=== PATIENT | female | born 1990 | race Caucasian/White ===

== ENCOUNTER → 2022-10-16 | Outpatient (CLI) | payer OTHER ==
[~2022-10-16] MED LIST: Neurontin 300300 MG PO; ONDA4ODT MM; Roxicodone5 MG PO
[2022-10-16 14:31] LABS: BASOPHILS ABSOLUTE AUTO 0.09 K/mm3 (0.00-0.23); BASOPHILS PERCENT AUTO 1 % (0-2); EOSINOPHILS ABSOLUTE AUTO 0.39 K/mm3 (0.00-0.68); EOSINOPHILS PERCENT AUTO 3 % (0-6); Hematocrit 38.4 % (33.0-51.0); Hemoglobin 12.7 g/dL (11.5-16.0); IMMATURE GRAN ABSOLUTE AUTO 0.16 K/mm3 (0.00-0.10); IMMATURE GRAN PERCENT AUTO 1 % (0-1); LYMPHOCYTES ABSOLUTE AUTO 1.82 K/mm3 (0.84-5.20); LYMPHOCYTES PERCENT AUTO 15 % (21-46); MONOCYTES ABSOLUTE AUTO 0.66 K/mm3 (0.16-1.47); MONOCYTES PERCENT AUTO 6 % (4-13); Mean Corpuscular HGB 35.3 pg (26.0-34.0); Mean Corpuscular HGB Conc 33.1 g/dL (31.5-36.5); Mean Corpuscular Volume 107 fL (80-100); Mean Platelet Volume 9.7 fL (9.1-12.4); NEUTROPHILS ABSOLUTE AUTO 8.96 K/mm3 (1.96-9.15); NEUTROPHILS PERCENT AUTO 74 % (41-73); Platelet Count 777 K/mm3 (150-400); RDW Coefficient Variation 13.6 % (11.7-14.2); RDW Standard Deviation 53.7 fL (35.1-46.3); White Blood Cell Count 12.08 K/mm3 (4.00-11.30)
[2022-10-16 14:40] LABS: Albumin, Blood 2.7 g/dL (3.4-5.0); Albumin/Globulin Ratio 0.5 (0.8-1.8); Bilirubin, Total 0.4 mg/dL (0.1-1.0); Bun/Creatinine Ratio 1.3 (12.0-20.0); Calcium, Blood 9.1 mg/dL (8.5-10.1); Creatinine, Blood 0.76 mg/dL (0.40-1.00); Potassium, Blood 4.1 mmol/L (3.5-5.5); Total Protein, Blood 7.7 g/dL (6.4-8.2)
== END | disposition home or self-care (01) ==
LOC: LAB SHORT 14:25
PROVIDERS: Physician Assistant
DX: R10.9 Unspecified abdominal pain (principal)
CPT/HCPCS: 80053; 83690; 85025

== ENCOUNTER → 2023-01-07 | Outpatient (CLI) | payer OTHER ==
[~2023-01-07] MED LIST changes: +FAMO20 PO; +Hair, Skin & N1 EACH PO
[2023-01-07 14:17] LABS: BASOPHILS ABSOLUTE AUTO 0.06 K/mm3 (0.00-0.23); BASOPHILS PERCENT AUTO 1 % (0-2); EOSINOPHILS ABSOLUTE AUTO 0.26 K/mm3 (0.00-0.68); EOSINOPHILS PERCENT AUTO 3 % (0-6); Hematocrit 44.4 % (33.0-51.0); Hemoglobin 15.3 g/dL (11.5-16.0); IMMATURE GRAN ABSOLUTE AUTO 0.03 K/mm3 (0.00-0.10); IMMATURE GRAN PERCENT AUTO 0 % (0-1); LYMPHOCYTES ABSOLUTE AUTO 1.33 K/mm3 (0.84-5.20); LYMPHOCYTES PERCENT AUTO 13 % (21-46); MONOCYTES ABSOLUTE AUTO 0.59 K/mm3 (0.16-1.47); MONOCYTES PERCENT AUTO 6 % (4-13); Mean Corpuscular HGB 32.3 pg (26.0-34.0); Mean Corpuscular HGB Conc 34.5 g/dL (31.5-36.5); Mean Corpuscular Volume 94 fL (80-100); Mean Platelet Volume 10.1 fL (9.1-12.4); NEUTROPHILS ABSOLUTE AUTO 7.76 K/mm3 (1.96-9.15); NEUTROPHILS PERCENT AUTO 77 % (41-73); Platelet Count 302 K/mm3 (150-400); RDW Coefficient Variation 15.5 % (11.7-14.2); RDW Standard Deviation 53.3 fL (35.1-46.3); Red Blood Cell Count 4.73 M/mm3 (3.80-5.20); White Blood Cell Count 10.03 K/mm3 (4.00-11.30)
[2023-01-07 14:25] LABS: Albumin, Blood 3.8 g/dL (3.4-5.0); Albumin/Globulin Ratio 0.8 (0.8-1.8); Bilirubin, Total 1.1 mg/dL (0.1-1.0); Bun/Creatinine Ratio 4.1 (12.0-20.0); Calcium, Blood 9.5 mg/dL (8.5-10.1); Creatinine, Blood 0.74 mg/dL (0.40-1.00); Globulin, Blood 4.8 g/dL (2.2-4.0); Potassium, Blood 3.8 mmol/L (3.5-5.5); Total Protein, Blood 8.6 g/dL (6.4-8.2)
== END | disposition home or self-care (01) ==
LOC: LAB SHORT 14:11 → LAB 14:11
PROVIDERS: Physician Assistant
DX: R10.9 Unspecified abdominal pain (principal)
CPT/HCPCS: 80053; 82150; 83690; 85025

== ENCOUNTER 2023-06-29 14:16 | Inpatient (IN) | payer OTHER ==
[~2023-06-29] VITALS: Ht 165.1 cm; Wt 76.0 kg
[~2023-06-29 14:16] MED LIST changes: +ACET500 PO; +B-1100 M1 PO; +FOLI1; +Nicoderm Cq1 EACH TOP; +Percocet 5-3251 EACH PO
[2023-06-29 15:06] LABS: BASOPHILS ABSOLUTE AUTO 0.07 K/mm3 (0.00-0.23); BASOPHILS PERCENT AUTO 1 % (0-2); EOSINOPHILS ABSOLUTE AUTO 0.03 K/mm3 (0.00-0.68); EOSINOPHILS PERCENT AUTO 0 % (0-6); Hematocrit 31.1 % (33.0-51.0); IMMATURE GRAN ABSOLUTE AUTO 0.09 K/mm3 (0.00-0.10); IMMATURE GRAN PERCENT AUTO 1 % (0-1); LYMPHOCYTES ABSOLUTE AUTO 1.36 K/mm3 (0.84-5.20); LYMPHOCYTES PERCENT AUTO 10 % (21-46); MONOCYTES ABSOLUTE AUTO 1.06 K/mm3 (0.16-1.47); MONOCYTES PERCENT AUTO 7 % (4-13); Mean Corpuscular HGB 35.5 pg (26.0-34.0); Mean Corpuscular HGB Conc 35.4 g/dL (31.5-36.5); Mean Corpuscular Volume 100 fL (80-100); Mean Platelet Volume 10.4 fL (9.1-12.4); NEUTROPHILS ABSOLUTE AUTO 11.64 K/mm3 (1.96-9.15); NEUTROPHILS PERCENT AUTO 82 % (41-73); Platelet Count 337 K/mm3 (150-400); RDW Coefficient Variation 18.1 % (11.7-14.2); RDW Standard Deviation 66.1 fL (35.1-46.3); White Blood Cell Count 14.25 K/mm3 (4.00-11.30)
[2023-06-29 15:56] LABS: Source, Urine Clean Catch
[2023-06-29] MEDS ORDERED: FLUO10 (15:59)
[2023-06-29 16:03] LABS: Appearance, Urine Cloudy (Clear); Blood, Urine 1+ (Neg); Color, Urine Amber (P-Yellow); Glucose Qualitative, Urine Neg (Neg); Ketones, Urine 1+ (Neg); Leukocyte Esterase, Urine 2+ (Neg); Nitrite, Urine Pos (Neg); Protein, Urine 2+ (Neg); Urobilinogen, Urine 3+ (Normal)
[2023-06-29 16:07] LABS: Alanine Aminotransfer (ALT/SGP 68 U/L (12-78); Albumin, Blood 2.3 g/dL (3.4-5.0); Albumin/Globulin Ratio 0.5 (0.8-1.8); Alk Phos 264 U/L (50-136); Anion Gap 9 mmol/L (6-16); Aspartate Aminotrans (AST/SGOT 241 U/L (12-37); Bilirubin, Total 4.5 mg/dL (0.1-1.0); Blood Urea Nitrogen <1 mg/dL (8-24); Bun/Creatinine Ratio Unable to Calculate (12.0-20.0); CO2, Blood 29 mmol/L (21-32); Chloride, Blood 98 mmol/L (98-108); Creatinine, Blood 0.42 mg/dL (0.40-1.00); Glomerular Filtration Rate 133 (60-); Glucose, Blood 89 mg/dL (70-99); Potassium, Blood 2.9 mmol/L (3.5-5.5); Sodium, Blood 136 mmol/L (136-145); Total Protein, Blood 7.3 g/dL (6.4-8.2)
[2023-06-29 16:12] LABS: Bilirubin, Urine 3+ (Neg)
[2023-06-29 16:14] LABS: Amorphous Light (0-Heavy); Mucus Mod (0-Heavy); Squamous Epithelial Cells Many /hpf (Few); Yeast/Fungi Urine Mod /hpf
[2023-06-29 16:15] LABS: Bacteria Many /hpf; Red Blood Cells, Urine 0-2 /hpf (0-2)
[2023-06-29 18:07] LABS: Influenza A, PCR NEGATIVE (NEGATIVE); Influenza B, PCR NEGATIVE (NEGATIVE); Resp Syncytial Virus, PCR NEGATIVE (NEGATIVE); SARS-Cov-2 (COVID-19) PCR, MMC NEGATIVE (NEGATIVE)
[2023-06-29 19:30] LABS: International Normalized Ratio 1.5; Prothrombin Time Results 15.4 Sec (9.7-11.5)
[2023-06-29 22:02] VITALS: BP 92/63
[2023-06-30 00:14] VITALS: BP 100/62
[2023-06-30 02:42] VITALS: BP 97/70
[2023-06-30 03:40] LABS: BASOPHILS ABSOLUTE AUTO 0.05 K/mm3 (0.00-0.23); BASOPHILS PERCENT AUTO 1 % (0-2); EOSINOPHILS ABSOLUTE AUTO 0.09 K/mm3 (0.00-0.68); EOSINOPHILS PERCENT AUTO 1 % (0-6); Hematocrit 27.2 % (33.0-51.0); Hemoglobin 9.3 g/dL (11.5-16.0); IMMATURE GRAN ABSOLUTE AUTO 0.05 K/mm3 (0.00-0.10); IMMATURE GRAN PERCENT AUTO 1 % (0-1); LYMPHOCYTES ABSOLUTE AUTO 1.21 K/mm3 (0.84-5.20); LYMPHOCYTES PERCENT AUTO 12 % (21-46); MONOCYTES ABSOLUTE AUTO 0.77 K/mm3 (0.16-1.47); MONOCYTES PERCENT AUTO 7 % (4-13); Mean Corpuscular HGB 35.2 pg (26.0-34.0); Mean Corpuscular HGB Conc 34.2 g/dL (31.5-36.5); Mean Corpuscular Volume 103 fL (80-100); Mean Platelet Volume 10.3 fL (9.1-12.4); NEUTROPHILS ABSOLUTE AUTO 8.26 K/mm3 (1.96-9.15); NEUTROPHILS PERCENT AUTO 79 % (41-73); Platelet Count 267 K/mm3 (150-400); RDW Coefficient Variation 18.9 % (11.7-14.2); RDW Standard Deviation 71.7 fL (35.1-46.3); Red Blood Cell Count 2.64 M/mm3 (3.80-5.20); White Blood Cell Count 10.43 K/mm3 (4.00-11.30)
[2023-06-30 04:29] LABS: Magnesium, Blood 1.5 mg/dL (1.6-2.4)
[2023-06-30 04:39] LABS: Alanine Aminotransfer (ALT/SGP 48 U/L (12-78); Albumin, Blood 1.6 g/dL (3.4-5.0); Albumin/Globulin Ratio 0.4 (0.8-1.8); Alk Phos 188 U/L (50-136); Anion Gap 6 mmol/L (6-16); Aspartate Aminotrans (AST/SGOT 166 U/L (12-37); Bilirubin, Total 4.7 mg/dL (0.1-1.0); Blood Urea Nitrogen <1 mg/dL (8-24); Bun/Creatinine Ratio Unable to Calculate (12.0-20.0); CO2, Blood 24 mmol/L (21-32); Calcium, Blood 6.4 mg/dL (8.5-10.1); Chloride, Blood 112 mmol/L (98-108); Creatinine, Blood 0.39 mg/dL (0.40-1.00); Globulin, Blood 4.1 g/dL (2.2-4.0); Glomerular Filtration Rate 136 (60-); Glucose, Blood 84 mg/dL (70-99); Potassium, Blood 3.6 mmol/L (3.5-5.5); Sodium, Blood 142 mmol/L (136-145); Total Protein, Blood 5.7 g/dL (6.4-8.2)
--- NOTE | 2023-06-30 05:33 | NUR ---
SHIFT SUMMARY NO ACUTE CHANGES THIS SHIFT POST ADMISSION. PT C/O SEVERE ABD TO R SIDE ON ADMISSION, TORADOL UNSSUCESSFUL AT RELIEVING PAIN, WAS FENTANYL. DILAUDID ALONGSIDE SOME REST HAS BEEN SUCCESFUL AT RELIEVING PAIN ENOUGH TO SLEEP ALONG WITH 2 DOSES OF LIBRIUM FOR ETOH. PT'S VSS, MILD HYPOTENSION NOTED. FLUIDS INFUSING T/O SHIFT, DARK URINE OUTPUT. PT COUNSELLED ON NICOTINE AND ALCOHOL CESSATION, PT STATES SHE WANTS TO QUIT AND HAS IN THE PAST. BED ALARM ON BUT PT NOT IMPULSIVE.
[2023-06-30 08:41] VITALS: BP 101/70
[2023-06-30 11:12] VITALS: BP 99/69
[2023-06-30 16:38] VITALS: BP 100/71
--- NOTE | 2023-06-30 17:38 | NUR ---
END OF SHIFT PT A&O X4. VSS. SPO2 > 92% ON RA. MONITOR SHOWING SR-ST, HR 90s-110s. PT REPORTING R-SIDED "STABBING" ABD PAIN. PT MEDICATED PER EMAR/PT REQUEST W/ PT REPORT OF IMPROVEMENT. ABD SOFT. CIWA 3-8 THIS SHIFT D/T PT TREMORS & NAUSEA. PT REPORTS IMPROVENT IN NAUSEA W/ MEDICATION & TREMORS NOTEABLLY LESS W/ PRN LIBRIUM PER EMAR.
[2023-06-30 20:07] VITALS: BP 98/72
[2023-07-01 00:05] VITALS: BP 94/67
[2023-07-01 04:43] LABS: Alanine Aminotransfer (ALT/SGP 47 U/L (12-78); Albumin, Blood 1.8 g/dL (3.4-5.0); Albumin/Globulin Ratio 0.4 (0.8-1.8); Alk Phos 189 U/L (50-136); Anion Gap 5 mmol/L (6-16); Aspartate Aminotrans (AST/SGOT 166 U/L (12-37); Bilirubin, Total 3.5 mg/dL (0.1-1.0); CO2, Blood 24 mmol/L (21-32); Chloride, Blood 114 mmol/L (98-108); Creatinine, Blood 0.47 mg/dL (0.40-1.00); Globulin, Blood 4.1 g/dL (2.2-4.0); Glomerular Filtration Rate 130 (60-); Glucose, Blood 84 mg/dL (70-99); Potassium, Blood 3.6 mmol/L (3.5-5.5); Sodium, Blood 143 mmol/L (136-145); Total Protein, Blood 5.9 g/dL (6.4-8.2)
[2023-07-01 04:45] LABS: Blood Urea Nitrogen <1 mg/dL (8-24); Bun/Creatinine Ratio Unable to Calculate (12.0-20.0)
--- NOTE | 2023-07-01 06:38 | NUR ---
NOC SHIFT SUMMARY PT ORIENTED X4, WITHDRAWN BUT COOPERATIVE. TEARFUL AT TIMES. EXPRESSES DESIRE TO QUIT ETOH AND ATTEND AA MEETINGS WHEN DISCHARGED. SHE SPOKE ABOUT HER SON BEING HER MOTIVATION. CIWA 3-11, TOLERATING LIBRIUM PO WELL. NO ATIVAN UTLIZED. STILL W/COMPLAINTS OF RUQ ABD PAIN, IV DILAUDID GIVEN. NAUSEA X2, PO NAUSEA MEDS GIVEN. ST ON TELEMETRY, VSS PER PT TREND. WILL PASS ON TO DAY RN
[2023-07-01 06:52] VITALS: BP 100/76
[2023-07-01 08:28] VITALS: BP 109/67
[2023-07-01 11:29] VITALS: BP 99/68
[2023-07-01 14:50] VITALS: BP 96/68
--- NOTE | 2023-07-01 15:57 | NUR ---
MEDICAL STATUS / TRANSFER NOTE PT A&O X4. VSS. SPO2 > 92% ON RA. TELEMETRY SHOWING NSR PRIOR TO TELEMETRY DC. PT MEDICAL STATUS. CIWA: 3-8 THIS SHIFT D/T TREMORS & NAUSEA, MEDICATED W/ PRN LIBRIUM PER EMAR X1 THIS SHIFT W/ IMPROVEMENT. NS GTT INFUSING PER EMAR. PT REPORTING R-SIDED ABD PAIN, MEDICATED PER EMAR/PT REQUEST W/ PT REPORT OF IMPROVEMENT. PT DENYING BM THIS HOSPITAL STAY. MD JOVEL W/ ORDERS FOR BOWEL CARE MEDICATIONS, MEDS GIVEN TO PT PER EMAR. REPORT GIVEN TO ACCEPTING SURGICAL FLOOR RN ASSUMING CARE OF PT. PT TO BE TAKEN TO RM 207 W/ BELONGINGS.
--- NOTE | 2023-07-01 16:55 | NUR ---
SHIFT SUMMARY: ABD PAIN/ETOH PATIENT IS A&OX4. PATIENT REPORTS "DISCOMFORT" ON HER RLQ WHICH HAS BEEN MANAGED WITH IV DILAUDID. PATIENTS CIWA SCORE IS AN 8 AT THIS TIME. SHE WAS GIVEN IV ATIVAN WHICH HAS HELPED CALMED PATIENTS TREMORS AT THIS TIME. PATIENT IS TOLERATING SMALL AMOUNTS OF PO INTAKE. SHE IS A SBA TO THE BATHROOM. SHE HAS IV FLUIDS RUNNING PER EMAR. PATIENT IS CURRENTLY LAYING IN BED WITH CALL LIGHT IN REACH.
[2023-07-01 19:56] VITALS: BP 102/71
[2023-07-02 03:18] VITALS: BP 107/74
--- NOTE | 2023-07-02 04:02 | NUR ---
SHIFT SYMMARY VSS. PT SLEPT ON AND OFF T/O THE NIGHT, WAS ABLE TO AMBULATE TO THE BATHROOM INDEPENDENTLY. VOIDING, NO BM. PT REPORTS NO FLATTUS. TOLLERATED SMALL AMOUNTS OF PO INTAKE. ONE EPISODE OF NAUSEA NOTED, NO EMESIS. STRUGGLED WITH PAIN CONTROL T/O THE NIGHT, PT REPORTS 7-8/10 PAIN IN RUQ AND R FLANK. MEDICATED WITH PRN MEDICATION, SOME RELIEF NOTED. K PAD GIVEN. CIWA'S STAYED CONSISTANTLY 8 T/O THE NIGHT. PT REPORTED IMPROVEMENT IN SYMPTOMS WHEN MEDICATED PER EMAR FOR WITHDRAWLS. OVERALL, NO ACUTE EVENTS NOTED.
[2023-07-02 06:23] LABS: Alanine Aminotransfer (ALT/SGP 40 U/L (12-78); Albumin, Blood 1.7 g/dL (3.4-5.0); Albumin/Globulin Ratio 0.4 (0.8-1.8); Alk Phos 174 U/L (50-136); Anion Gap 4 mmol/L (6-16); Aspartate Aminotrans (AST/SGOT 139 U/L (12-37); Bilirubin, Total 3.6 mg/dL (0.1-1.0); Blood Urea Nitrogen <1 mg/dL (8-24); Bun/Creatinine Ratio Unable to Calculate (12.0-20.0); CO2, Blood 24 mmol/L (21-32); Calcium, Blood 7.3 mg/dL (8.5-10.1); Chloride, Blood 116 mmol/L (98-108); Creatinine, Blood 0.43 mg/dL (0.40-1.00); Globulin, Blood 4.1 g/dL (2.2-4.0); Glomerular Filtration Rate 132 (60-); Glucose, Blood 77 mg/dL (70-99); Potassium, Blood 3.8 mmol/L (3.5-5.5); Sodium, Blood 144 mmol/L (136-145); Total Protein, Blood 5.8 g/dL (6.4-8.2)
[2023-07-02 07:14] VITALS: BP 100/72; BP 98/59
--- NOTE | 2023-07-02 09:18 | NUR ---
PT WITH INCREASED WITHDRAWL SX THROUGH NOC. CIWA SCORE OF 12 DURING AM ASSESSMENT, SEVERE TREMORS, HEADACH, NAUSEA WELL INCREASED ABD PAIN W/MOD ABD DISTENTION. PT MEDICATED WITH 1MG DILAUDID AND 25MG LIBRIUM DUE TO SEDATION AND INCREASED O2 REQUIREMENTS. CONTINUOUS BIOX PLACED ON PT, O2 SAT 85%. PT PLACED ON 2L 02 NC AND O2 SAT INCREASED TO 91%. DR JOVEL IN TO SEE PT. PLAN FOR SCHEDULED LIBRIUM AND TO START PHENOBARBITAL. MD REQUEST TX TO PCU FOR HIGHGER LEVEL OF CARE.
[2023-07-02 10:08] LABS: HEPATITIS C AB CIA INTERP Negative (Negative); HEPATITIS C ANTIBODY CIA INDEX 0.11 IV
[2023-07-02 11:15] VITALS: BP 100/78
--- NOTE | 2023-07-02 11:28 | NUR ---
PT TX TO PCU AT APROX 1115. REPORT GIVEN TO KODI. PT AWAKENS TO VERBAL STIMULI EASILY/FALLS BACK ASLEEP EASILY. CIWA SCORE 0 FOLLOWING ADMINISTRATION OF IV PHENOBARBITOL. ATTEMPTED TO CALL FAMILY W/NO ANSWER TO UPDATE ON CHANGE IN LEVEL OF CARE.
[2023-07-02 15:26] LABS: International Normalized Ratio 1.74; Prothrombin Time Results 17.7 Sec (9.7-11.5)
[2023-07-02 16:22] VITALS: BP 104/68
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
[2023-07-02 19:51] VITALS: BP 98/76
[2023-07-02 23:14] VITALS: BP 97/69; BP 9897/69
[2023-07-03] VITALS (8 sets, daily range): BP systolic 94–102; BP diastolic 62–79
[2023-07-03 04:39] LABS: Hematocrit 29.8 % (33.0-51.0); Hemoglobin 10.1 g/dL (11.5-16.0); Mean Corpuscular HGB 35.9 pg (26.0-34.0); Mean Corpuscular HGB Conc 33.9 g/dL (31.5-36.5); Mean Corpuscular Volume 106 fL (80-100); Mean Platelet Volume 10.6 fL (9.1-12.4); Platelet Count 281 K/mm3 (150-400); RDW Coefficient Variation 18.5 % (11.7-14.2); RDW Standard Deviation 71.8 fL (35.1-46.3); Red Blood Cell Count 2.81 M/mm3 (3.80-5.20); White Blood Cell Count 10.46 K/mm3 (4.00-11.30)
--- NOTE | 2023-07-03 05:08 | NUR ---
SHIFT SUMMARY THIS RN ASSUMED CARE OF PATIENT AT 1900. PT IS LETHARGIC BUT AROUSABLE TO VERBAL STIMULI, BUT QUICKLY FALLS BACK TO SLEEP, ANSWERING QUESTIONS APPROPRIATELY. MILD TREMORS NOTED WITH MOVEMENT. CIWA 0-1. BP STABLE. SR WTIH HR 70-80'S. ON RA WITH SPO2 >92%. TACHYPNEA NOTED AT TIMES. REPORTS RT UPPER ABDOMINAL PAIN BUT APPEARS TO HAVE SLEPT T/O THE NIGHT. 1P ASSIST TO BSC. NS INFUSING AT 125MLS/HR. NO ACUTE CHANGES NOTED. BED IN LOWEST POSITION, BED ALARM ON, CALL LIGHT WITHIN REACH. THIS [facility].
[2023-07-03 05:24] LABS: Albumin, Blood 1.5 g/dL (3.4-5.0); Albumin/Globulin Ratio 0.4 (0.8-1.8); Bilirubin, Total 3.9 mg/dL (0.1-1.0); Bun/Creatinine Ratio 2.4 (12.0-20.0); Calcium, Blood 7.1 mg/dL (8.5-10.1); Creatinine, Blood 0.42 mg/dL (0.40-1.00); Potassium, Blood 4.3 mmol/L (3.5-5.5); Total Protein, Blood 5.5 g/dL (6.4-8.2)
--- NOTE | 2023-07-03 06:22 | NUR ---
PATIENT UPDATE THIS RN NOTED DESAT ALARM INDICATING SPO2 70-80'S WITH GOOD PLETH. PT PREVIOUSLY ON RA. THIS RN TO ROOM TO ASSESS PATIENT. PATIENT MORE LETHARGIC AND NOT REPONSIVE TO VERBAL STIMULI. STERNAL RUB GIVEN WTIH IMMEDIATE REPONSE. PT PLACED ON 2L VIA NC. SPO2 >92% AT THIS TIME. PT HAVING A DIFFICULT TIME STAYING AWAKE, BUT IS REPORTING THAT SHE IS FEELING DYSPNEIC AND FEELING "PRESSURE" IN HER CHEST. EKG DONE, EKG READING NSR; NO NOTED ACUTE CHANGES FROM PRIOR EKG. PT REPORTING "PRESSURE" IS FELT MORE WHEN SHE TAKES DEEP BREATHING. LS CLEAR. PT NOTED TO HAVE INCREASED EDEMA TO EYELIDS, STATING THAT IT'S HARD TO OPEN THEM. THIS RN PLACED NS ON STANDBY. MD ANN NOTIFIED OF CHANGE IN CONDITION AND THIS RN'S CONCERNS/INTERVENTIONS. MD ANN VERBALIZED THAT HE WILL LOOK OVER PATIENTS CHART AT THIS TIME. PT LEFT WITH HOB ELEVATED AND BP'S CYCLING Q15MIN. CONTINUES TO BE ON 2L VIA NC. NO FURTHER ORDERS AT THIS TIME.
--- NOTE | 2023-07-03 10:08 | NUR ---
care assumption this rn assumed care at 0700. vital signs stable. patient is lethargic and responds to verbal stimuli. patient is able to hold a conversations for a couple minutes and then falls back asleep. patient scalera is yellow and pupils are sluggish. patient reports abd pain and heat applied. patient reports no chest pain/pressure. patient does not report shortness of breath but reports occasional pain with deep breaths. respirations 20-30 on 2l nc and spo2 >90%. patient has dim lung sounds bilaterally throighout. tele sr 70s. patient ciwa this am is 1. see shift assessment for further detials. md kelly in to see patient and discussed plan of care. plan of care is up to date.
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
--- NOTE | 2023-07-03 17:56 | NUR ---
shift summary no acute changes throughout the shift. ciwa 0-5. see charting. patient vitals stable. patient had a shower and linen change. patient has been ambulating independently and using the walker. see previous notes. plan of care up to date
--- NOTE | 2023-07-03 21:39 | NUR ---
ASSUMED PT CARE FORM RN ON . SLEEPING, WAKES TO NOISE. A&OX4 BUT RESPONSES SLOW, APPEAR DROWSY. CIWAH OF 1 AT THIS TIME. HR SR IN 90'S. BP STABLE, SEE RECORDED VITAL SIGNS. O2 SATS > 90% ON RA. AFEBRILE. MEDICATED FOR PAIN IN RUQ OF ABDOMEN, SEE EMAR. DENIES FURTHER NEEDS AT THIS TIME. CALL LIGHT IN REACH. BED IN LOW POSITION.
[2023-07-04 05:07] LABS: Albumin, Blood 1.6 g/dL (3.4-5.0); Albumin/Globulin Ratio 0.4 (0.8-1.8); Bilirubin, Total 2.6 mg/dL (0.1-1.0); Bun/Creatinine Ratio 4.3 (12.0-20.0); Calcium, Blood 7.7 mg/dL (8.5-10.1); Creatinine, Blood 0.46 mg/dL (0.40-1.00); Potassium, Blood 3.6 mmol/L (3.5-5.5); Total Protein, Blood 5.6 g/dL (6.4-8.2)
[2023-07-04 05:26] VITALS: BP 88/62
--- NOTE | 2023-07-04 05:57 | NUR ---
SHIFT SUMMARY: MEDICATED FOR PAIN IN ABDOMEN WITH BOTH PO AND IV PRN PAIN MEDS, SEE EMAR. BP THIS A.M. SOFT, MAP > 65, WILL MONITOR. OTHER VITAL SIGNS STABLE. CIWAH'S CONTINUE TO BE 1-3. MEDICATED FOR NAUSEA, SEE EMAR. CALL LIGHT IN REACH. BED IN LOW POSITION.
[2023-07-04 07:41] VITALS: BP 92/63
[2023-07-04] MEDS ORDERED: LACT10SY PO (13:54)
[2023-07-04] MEDS ORDERED: B-1100 M1 PO (13:55)
[2023-07-04 14:30] VITALS: BP 104/74
--- NOTE | 2023-07-04 14:55 | NUR ---
UPDATE PT SLEEPY BUT ABLE TO ANSWER QUESTIONS, MAKE NEEDS KNOWN. USES CALL LIGHT APPROPRIATELY. ABLE TO AMBULATED TO BATHROOM TO VOID. SP02>90% ON RA. PT MADE MEDICAL NO TELE STATUS THIS SHIFT. VSS. PT NAUSEATED THIS AM, PHENERGAN GIVEN PER EMAR. FAMILY CALLED MULTIPLE TIMES FOR UPDATE. PT DID NOT GIVE CONSENT TO UPDATE FAMILY, FAMILY DID NOT RECEIVE UPDATE. PT AMBULATED FROM ROOM THIS AFTERNOON AND STATED SHE WANTS TO GO HOME. CALL PLACED TO MD ODONNELL. MD ODONNELL WITH DISCHARGE ORDERS. IV REMOVED. PT PLACED CALL TO CORAL GALVEZ, WHO STATED SHE WILL PICK PT UP. PCT HELPED PT DRESS. DISCHARGE ORDERS AND MEDICATIONS REVIEWED WITH PT. [facility] PER PT'S REQUEST. PT IN ROOM RESTING, WAITING FOR RIDE.
== END 2023-07-04 15:30 | disposition home or self-care (01) | DRG 896 ==
LOC: ER 14:16 → PCU 14:17 → SURS 07-01 16:20 → PCU 07-02 11:13
PROVIDERS: Family Medicine; Internal Medicine; Student in an Organized Health Care Education/Training Program; ADMIT Internal Medicine
PROC: HZ2ZZZZ Detoxification Services for Substance Abuse Treatment (ICD-10-PCS; principal; 2023-07-04)
DX: F10.239 Alcohol dependence with withdrawal, unspecified (principal); R57.1 Hypovolemic shock; K86.1 Other chronic pancreatitis; R65.10 Systemic inflammatory response syndrome (SIRS) of non-infectious origin without acute organ dysfunction; F10.259 Alcohol dependence with alcohol-induced psychotic disorder, unspecified; K76.0 Fatty (change of) liver, not elsewhere classified; K70.10 Alcoholic hepatitis without ascites; E87.6 Hypokalemia; E88.09 Other disorders of plasma-protein metabolism, not elsewhere classified; D50.9 Iron deficiency anemia, unspecified; K76.82 Hepatic encephalopathy; B96.89 Other specified bacterial agents as the cause of diseases classified elsewhere; F43.10 Post-traumatic stress disorder, unspecified; F32.A Depression, unspecified; F41.9 Anxiety disorder, unspecified; F17.210 Nicotine dependence, cigarettes, uncomplicated; K74.60 Unspecified cirrhosis of liver; Z88.0 Allergy status to penicillin; Z79.899 Other long term (current) drug therapy; Z11.52 Encounter for screening for COVID-19
CPT/HCPCS: 0241U; 36415; 74177; 80053; 81001; 81025; 82140; 82248; 82947; 83605; 83690; 83735; 85025; 85027; 85610; 86803; 87040; 87086; 87106; 93005; 93010; 94760; 94762; 96361; 96365-59; 96366; 96368; 96375; 96376; 99285-25; A9270; G0378; J1170; J1885; J1956; J2060; J2405; J2560; J2765; J2930; J3010; J3411; J3475; J3480; J7030; J7050; Q9967

== ENCOUNTER 2023-07-05 15:27 | Emergency (ER) | payer OTHER ==
[~2023-07-05] VITALS: Ht 165.1 cm; Wt 65.8 kg
[~2023-07-05 15:27] MED LIST changes: +FLUO10; +LACT10SY PO
[2023-07-05 16:11] LABS: BASOPHILS ABSOLUTE AUTO 0.05 K/mm3 (0.00-0.23); BASOPHILS PERCENT AUTO 1 % (0-2); EOSINOPHILS ABSOLUTE AUTO 0.08 K/mm3 (0.00-0.68); EOSINOPHILS PERCENT AUTO 1 % (0-6); Ethanol (Alcohol), Blood, Med <3 mg/dL; Hematocrit 37.8 % (33.0-51.0); Hemoglobin 12.6 g/dL (11.5-16.0); IMMATURE GRAN ABSOLUTE AUTO 0.15 K/mm3 (0.00-0.10); IMMATURE GRAN PERCENT AUTO 1 % (0-1); LYMPHOCYTES ABSOLUTE AUTO 1.55 K/mm3 (0.84-5.20); LYMPHOCYTES PERCENT AUTO 15 % (21-46); MONOCYTES PERCENT AUTO 10 % (4-13); Magnesium, Blood 2.1 mg/dL (1.6-2.4); Mean Corpuscular HGB 35.6 pg (26.0-34.0); Mean Corpuscular HGB Conc 33.3 g/dL (31.5-36.5); Mean Corpuscular Volume 107 fL (80-100); Mean Platelet Volume 10.8 fL (9.1-12.4); NEUTROPHILS ABSOLUTE AUTO 7.66 K/mm3 (1.96-9.15); NEUTROPHILS PERCENT AUTO 72 % (41-73); Platelet Count 423 K/mm3 (150-400); RDW Coefficient Variation 19.4 % (11.7-14.2); RDW Standard Deviation 77.8 fL (35.1-46.3); Red Blood Cell Count 3.54 M/mm3 (3.80-5.20); White Blood Cell Count 10.59 K/mm3 (4.00-11.30)
[2023-07-05 16:17] LABS: Alanine Aminotransfer (ALT/SGP 48 U/L (12-78); Albumin, Blood 2.3 g/dL (3.4-5.0); Albumin/Globulin Ratio 0.4 (0.8-1.8); Alk Phos 211 U/L (50-136); Anion Gap 6 mmol/L (6-16); Aspartate Aminotrans (AST/SGOT 178 U/L (12-37); Bilirubin, Total 3.4 mg/dL (0.1-1.0); Blood Urea Nitrogen 1 mg/dL (8-24); Bun/Creatinine Ratio 1.8 (12.0-20.0); CO2, Blood 24 mmol/L (21-32); Calcium, Blood 8.2 mg/dL (8.5-10.1); Chloride, Blood 112 mmol/L (98-108); Creatinine, Blood 0.55 mg/dL (0.40-1.00); Globulin, Blood 5.5 g/dL (2.2-4.0); Glomerular Filtration Rate 125 (60-); Glucose, Blood 90 mg/dL (70-99); Potassium, Blood 3.4 mmol/L (3.5-5.5); Sodium, Blood 142 mmol/L (136-145)
[2023-07-05 16:20] LABS: Total Protein, Blood 7.8 g/dL (6.4-8.2)
[2023-07-05 18:29] LABS: Influenza A, PCR NEGATIVE (NEGATIVE); Influenza B, PCR NEGATIVE (NEGATIVE); Resp Syncytial Virus, PCR NEGATIVE (NEGATIVE); SARS-Cov-2 (COVID-19) PCR, MMC NEGATIVE (NEGATIVE)
[2023-07-05 21:00] VITALS: BP 104/72
== END 2023-07-05 21:15 | disposition home or self-care (01) ==
LOC: ER 15:27
PROVIDERS: Student in an Organized Health Care Education/Training Program
DX: S09.90XA Unspecified injury of head, initial encounter (principal); R10.9 Unspecified abdominal pain; R53.83 Other fatigue; R07.9 Chest pain, unspecified; F17.210 Nicotine dependence, cigarettes, uncomplicated; V89.2XXA Person injured in unspecified motor-vehicle accident, traffic, initial encounter; Z88.0 Allergy status to penicillin; Z79.899 Other long term (current) drug therapy; Z11.52 Encounter for screening for COVID-19
CPT/HCPCS: 0241U; 70450; 71046; 72170; 74177; 80053; 82140; 83690; 83735; 85025; 93005; 93010; 96361; 96374; 99285-25; A9270; J1885; J7030; Q9967

== ENCOUNTER 2023-07-08 16:28 | Inpatient (IN) | payer OTHER ==
[~2023-07-08] VITALS: Ht 165.1 cm; Wt 67.2 kg
[2023-07-08 17:48] LABS: Source, Urine Clean Catch
[2023-07-08 17:51] LABS: Appearance, Urine Hazy (Clear); Blood, Urine 1+ (Neg); Color, Urine Yellow (P-Yellow); Glucose Qualitative, Urine Neg (Neg); Ketones, Urine Neg (Neg); Leukocyte Esterase, Urine 2+ (Neg); Nitrite, Urine Neg (Neg); Protein, Urine Neg (Neg); Urobilinogen, Urine 2+ (Normal); pH, Urine 6.5 (5.0-8.0)
[2023-07-08 18:09] LABS: Bilirubin, Urine 1+ (Neg)
[2023-07-08 18:11] LABS: Bacteria Many /hpf; Squamous Epithelial Cells Mod /hpf (Few)
[2023-07-08 18:14] LABS: BASOPHILS ABSOLUTE AUTO 0.11 K/mm3 (0.00-0.23); BASOPHILS PERCENT AUTO 1 % (0-2); EOSINOPHILS ABSOLUTE AUTO 0.12 K/mm3 (0.00-0.68); EOSINOPHILS PERCENT AUTO 1 % (0-6); Hematocrit 35.8 % (33.0-51.0); Hemoglobin 11.9 g/dL (11.5-16.0); IMMATURE GRAN PERCENT AUTO 1 % (0-1); LYMPHOCYTES ABSOLUTE AUTO 2.31 K/mm3 (0.84-5.20); LYMPHOCYTES PERCENT AUTO 13 % (21-46); MONOCYTES ABSOLUTE AUTO 1.82 K/mm3 (0.16-1.47); MONOCYTES PERCENT AUTO 11 % (4-13); Mean Corpuscular HGB 36.1 pg (26.0-34.0); Mean Corpuscular HGB Conc 33.2 g/dL (31.5-36.5); Mean Corpuscular Volume 109 fL (80-100); Mean Platelet Volume 10.2 fL (9.1-12.4); NEUTROPHILS ABSOLUTE AUTO 12.78 K/mm3 (1.96-9.15); NEUTROPHILS PERCENT AUTO 74 % (41-73); Platelet Count 396 K/mm3 (150-400); RDW Coefficient Variation 18.6 % (11.7-14.2); White Blood Cell Count 17.34 K/mm3 (4.00-11.30)
[2023-07-08 18:39] LABS: Ethanol (Alcohol), Blood, Med <3 mg/dL
[2023-07-08 18:47] LABS: Alanine Aminotransfer (ALT/SGP 44 U/L (12-78); Albumin/Globulin Ratio 0.4 (0.8-1.8); Alk Phos 184 U/L (50-136); Anion Gap 7 mmol/L (6-16); Aspartate Aminotrans (AST/SGOT 168 U/L (12-37); Bilirubin, Total 2.4 mg/dL (0.1-1.0); Blood Urea Nitrogen 1 mg/dL (8-24); Bun/Creatinine Ratio 2.3 (12.0-20.0); CO2, Blood 23 mmol/L (21-32); Calcium, Blood 8.2 mg/dL (8.5-10.1); Chloride, Blood 111 mmol/L (98-108); Creatinine, Blood 0.44 mg/dL (0.40-1.00); Globulin, Blood 5.2 g/dL (2.2-4.0); Glomerular Filtration Rate 132 (60-); Glucose, Blood 83 mg/dL (70-99); Potassium, Blood 4.1 mmol/L (3.5-5.5); Sodium, Blood 141 mmol/L (136-145); Total Protein, Blood 7.2 g/dL (6.4-8.2)
[2023-07-08] MEDS ORDERED: TRAM50 PO (21:53)
[2023-07-08] MEDS ORDERED: CEFD300 PO (21:53)
[2023-07-09 00:47] LABS: International Normalized Ratio 1.4; Prothrombin Time Results 14.4 Sec (9.7-11.5)
[2023-07-09 05:53] LABS: Albumin, Blood 1.5 g/dL (3.4-5.0); Albumin/Globulin Ratio 0.4 (0.8-1.8); Bilirubin, Total 2.2 mg/dL (0.1-1.0); Bun/Creatinine Ratio 2.4 (12.0-20.0); Calcium, Blood 7.2 mg/dL (8.5-10.1); Creatinine, Blood 0.41 mg/dL (0.40-1.00); Globulin, Blood 4.1 g/dL (2.2-4.0); Potassium, Blood 3.6 mmol/L (3.5-5.5); Total Protein, Blood 5.6 g/dL (6.4-8.2)
[2023-07-09 06:27] VITALS: BP 109/70
--- NOTE | 2023-07-09 06:47 | NUR ---
PATIENT ARRIVED TO PCU 11 VIA STRETCHER AT 0616. SHE WAS ABLE TO AMBULATE WITH MINIMAL ASSISTANCE TO THE RESTROOM. SHE IS ALERT AND ORIENTED X4. SPO2 97% ON ROOM AIR. BLOOD PRESSURE STABLE, SINUS RHYTHM IN THE 70'S ON TELE. MEDICATED PER EMAR FOR PAIN. WILL CONTINUE TO MONITOR. CALL LIGHT WITHIN REACH.
[2023-07-09 07:20] VITALS: BP 115/80
[2023-07-09 10:07] LABS: Body Fluid WBC Count 160 /mm3 (0-999)
[2023-07-09 10:14] LABS: Albumin, Body Fluid 0.3 g/dL
[2023-07-09 10:17] LABS: Lactate Dehydrogenase, Body Fl 31 U/L
[2023-07-09 10:28] LABS: Protein, Body Fluid 0.9 g/dL
[2023-07-09 10:44] LABS: RBC Count, Body Fluid 11 /mm3 (0-0)
[2023-07-09 11:49] LABS: Appearance, Body Fluid Clear (Clear); Color, Body Fluid Yellow (None-Yellow); Total Cell Count, Body Fluid 100
[2023-07-09 14:25] VITALS: BP 107/74
--- NOTE | 2023-07-09 14:39 | NUR ---
NURSE NOTE PATIENT HAS HAD PARACENTIS DONE. PATIENT IS TO HAVE A FULL LIQUID DIET UNTIL MIDNIGHT AND NPO AFTER MIDNIGHT. PATIENT IS AWARE AND IS AGREEABLE.
--- NOTE | 2023-07-09 15:54 | NUR ---
SHIFT SUMMARY PATIENT IS ALERT AND ORIENTED. PATIENT HAD A HIDA SCAN AT NOON. PATIENT HAS HAD DIET CHANGED TO FULL LIQUID DIET UNTIL MIDNIGHT. NPO AT MIDNIGHT FOR PROCEDURE TOMORROW. PATIENT IS AWARE AND AGREEABLE. PATIENT HAS HAD MODERATE PAIN AND MEDICATED PER EMAR. PATIENT HAS NOT REPORTED AND NAUSEA OR VOMITTING THIS SHIFT. PATIENT HAS BEEN ON ROOM AIR SATTING ABOVE 95 PERCENT. BED IN LOCKED AND LOWEST POSITION. CALL LIGHT IN PLACE. WILL MONITOR UNTIL SHIFT CHANGE.
[2023-07-09 20:51] VITALS: BP 103/68
[2023-07-09 23:34] VITALS: BP 98/67
[2023-07-10] VITALS (17 sets, daily range): BP systolic 83–128; BP diastolic 53–89
[2023-07-10 04:15] LABS: BASOPHILS ABSOLUTE AUTO 0.12 K/mm3 (0.00-0.23); BASOPHILS PERCENT AUTO 1 % (0-2); EOSINOPHILS ABSOLUTE AUTO 0.18 K/mm3 (0.00-0.68); EOSINOPHILS PERCENT AUTO 1 % (0-6); Hematocrit 30.4 % (33.0-51.0); Hemoglobin 10.3 g/dL (11.5-16.0); IMMATURE GRAN ABSOLUTE AUTO 0.12 K/mm3 (0.00-0.10); IMMATURE GRAN PERCENT AUTO 1 % (0-1); LYMPHOCYTES ABSOLUTE AUTO 1.98 K/mm3 (0.84-5.20); LYMPHOCYTES PERCENT AUTO 13 % (21-46); MONOCYTES ABSOLUTE AUTO 1.22 K/mm3 (0.16-1.47); MONOCYTES PERCENT AUTO 8 % (4-13); Mean Corpuscular HGB 36.4 pg (26.0-34.0); Mean Corpuscular HGB Conc 33.9 g/dL (31.5-36.5); Mean Corpuscular Volume 107 fL (80-100); Mean Platelet Volume 10.5 fL (9.1-12.4); NEUTROPHILS ABSOLUTE AUTO 11.25 K/mm3 (1.96-9.15); NEUTROPHILS PERCENT AUTO 76 % (41-73); Platelet Count 405 K/mm3 (150-400); RDW Coefficient Variation 17.4 % (11.7-14.2); RDW Standard Deviation 69.5 fL (35.1-46.3); Red Blood Cell Count 2.83 M/mm3 (3.80-5.20); White Blood Cell Count 14.87 K/mm3 (4.00-11.30)
--- NOTE | 2023-07-10 04:29 | NUR ---
SHIFT SUMMARY PT A&O X4. ABLE TO MAKE NEEDS KNOWN. CALLING APPRORIATELY TO BE A SBA TO AMBULATE TO BATHROOM. SR ON MONITOR WITH HR 80'S. SBP 90-100'S DURING THIS SHIFT. MEDICATING PER EMAR FOR PAIN. NAUSEA X1 DURING THIS SHIFT; MEDICATED PER EMAR. REPOSITIONING INDEPENDENTLY IN BED. CONTINUES TO HAVE UNCHANGED RIGHT SIDED ABDOMINAL PAIN. MULTIPLE BOWEL MOVEMENTS REPORTED AFTER LACTULOSE GIVEN. BED IN LOWEST POSITION AND CALL LIGHT WITHIN REACH. THIS RN WILL REPORT TO ONCOMING DAYSHIFT RN.
[2023-07-10 04:49] LABS: Albumin, Blood 1.7 g/dL (3.4-5.0); Albumin/Globulin Ratio 0.4 (0.8-1.8); Bun/Creatinine Ratio 2.2 (12.0-20.0); Calcium, Blood 7.8 mg/dL (8.5-10.1); Creatinine, Blood 0.46 mg/dL (0.40-1.00); Globulin, Blood 4.2 g/dL (2.2-4.0); Potassium, Blood 3.7 mmol/L (3.5-5.5); Total Protein, Blood 5.9 g/dL (6.4-8.2)
--- NOTE | 2023-07-10 17:41 | NUR ---
AT 1645 THIS RN CONTACTED BY TOOL TROUBLE SHOOTER FOR ASSISTANCE WITH PT IN THE SHOWER. UPO ENTERING, PT SITTING IN SHOWER CHAIR WITH SEVERE TREMORS. PT REPORTED NOT BEING COLD AND STATED "I WAS FINE AND THEN ALL OF A SUDDEN THE PAIN JUST STARTED OUT OF NO WHERE." PT EXPRESSED EXTREME WEAKNESS AND REQUIRED 2 STAFF MEMBERS TO HELP HER TO HER BED. PT HR WAS TACHY IN THE 130'S AND RESP RATE WAS AT 26 B/MIN. OTHER VSS. PT GIVEN DILAUDID PER ORDERS AND ZOFRAN. PT REPORTED CHEST PRESSURE WHILE LYING IN THE BED. PT SATS THEN DOWN TO 88% ON RA. 2L NC APPLIED, SATS STABLIZED. MD NOTIFIED OF EVENT. EKG AND TROPONINS INSTRUCTED BY , THIS RN PLACED ORDERS. PT COACHED TO CONTROL RESP RATE. RATE STARTED TO STABLIZE, PT TREMORS BEGAN TO GO AWAY. EKG PERFORMED, RESULTS IN CHART.
--- NOTE | 2023-07-10 18:39 | NUR ---
SHIFT SUMMARY PT A/OX4. PT ABLE TO EXPRESS NEEDS AND CALLS APROPIATELY. PT VSS FOR MOST OF SHIFT EXCEPT FOR EPISODE MENTIONED IN PREVIOUS NOTE, SEE NOTE. PT WAS NPO FOR MOST OF SHIFT FOR POSSIBLE SURGERY. SURGEON TO SEE PT AND INFORMED HER NO SURGERY NEEDED. PT REPORTED PAIN THROUGHOUT SHIFT, TREATED PER EMAR.
[2023-07-11] VITALS (26 sets, daily range): BP systolic 67–137; BP diastolic 28–89
[2023-07-11 05:15] LABS: BASOPHILS ABSOLUTE AUTO 0.13 K/mm3 (0.00-0.23); BASOPHILS PERCENT AUTO 1 % (0-2); EOSINOPHILS ABSOLUTE AUTO 0.17 K/mm3 (0.00-0.68); EOSINOPHILS PERCENT AUTO 1 % (0-6); Hematocrit 31.8 % (33.0-51.0); Hemoglobin 10.4 g/dL (11.5-16.0); IMMATURE GRAN ABSOLUTE AUTO 0.12 K/mm3 (0.00-0.10); IMMATURE GRAN PERCENT AUTO 1 % (0-1); LYMPHOCYTES ABSOLUTE AUTO 2.01 K/mm3 (0.84-5.20); LYMPHOCYTES PERCENT AUTO 15 % (21-46); MONOCYTES PERCENT AUTO 8 % (4-13); Mean Corpuscular HGB 36.2 pg (26.0-34.0); Mean Corpuscular HGB Conc 32.7 g/dL (31.5-36.5); Mean Corpuscular Volume 111 fL (80-100); Mean Platelet Volume 10.5 fL (9.1-12.4); NEUTROPHILS PERCENT AUTO 75 % (41-73); Platelet Count 413 K/mm3 (150-400); RDW Coefficient Variation 17.3 % (11.7-14.2); RDW Standard Deviation 71.6 fL (35.1-46.3); Red Blood Cell Count 2.87 M/mm3 (3.80-5.20); White Blood Cell Count 13.83 K/mm3 (4.00-11.30)
[2023-07-11 06:24] LABS: Albumin, Blood 1.8 g/dL (3.4-5.0); Albumin/Globulin Ratio 0.4 (0.8-1.8); Bilirubin, Total 1.6 mg/dL (0.1-1.0); Calcium, Blood 8.1 mg/dL (8.5-10.1); Creatinine, Blood 0.51 mg/dL (0.40-1.00); Globulin, Blood 4.3 g/dL (2.2-4.0); Potassium, Blood 3.5 mmol/L (3.5-5.5); Total Protein, Blood 6.1 g/dL (6.4-8.2)
--- NOTE | 2023-07-11 06:25 | NUR ---
SHIFT SUMMARY ASSUMED CARE OF PT AT 1900. PT IS A/OX4. HEART SOUNDS REGULAR. LUNG SOUNDS DIMINISHED. PT C/O PAIN IN RUQ T/O SHIFT, MEDICATED PER EMAR. AT AROUND 0000 PT COMPLAINED OF ITCHING. LOTION APPLIED AND PT STAES FEELING BETTER. PT SLEPT UNTIL ABOUT 0415 WHEN SHE AWAKE STILL ITCHING BUT ALSO HAD A WHEEZING COUGH. PT FACE MORE SWOLLEN AND RED AND PT HAD RED DOTS ON CHEST. SATURATIONS REMAINED 90S WHILE ON RA. HOSPITALIST NOTIFED AND IGNACIO RIOS. CHARGE NURSE KARTHIKEYAN AYON SAID PT HAD DONE THIS A COUPLE NIGHTS AGO AND HAD IMPROVEMENT WITH THIS TREATMENT. AT 0600 PT HAD NO IMPROVED AND COUGH WORSENED. HOSPITALIST NOTIFIED AGAIN AND IV BENYDRYL ORDERED.
[2023-07-11 07:47] LABS: International Normalized Ratio 1.35; Prothrombin Time Results 13.9 Sec (9.7-11.5)
--- NOTE | 2023-07-11 14:47 | NUR ---
PATIENT TACHYPNEIC RR 38-40, ELEMENTARY SPANISH TEACHER COUGH, EXP WHEEZES; MOANS DURING EXHALE SO STRIDOR DIFFICULT TO HEAR IF PRESENT. C/O PAIN IN RUQ, MEDICATED WITH DILAUDID 1 MG WITH LITTLE RELIEF D/T COUGHING. BP DURING EPISODE 218/164, HR 119. DR. MOROCHO NOTIFIED, REQUESTED FOR HER TO COME SEE PATIENT. RT Adeola SWENSON AT BEDSIDE TO ADMINISTER ALBUTEROL INH AND INH EPINEPHERINE. NO INCREASE IN RASH (CHEST, BILATERAL ARMS AND LEGS), NO FACIAL SWELLING NOTED. LAST BP 106/73, HR 106, 97% ON 2 L/MIN NC. POSSIBLE ELEMENT OF ANXIETY ATTRIBUTING.
--- NOTE | 2023-07-11 17:29 | NUR ---
SHIFT SUMMARY: NO FURTHER EPISODES OF TACHYPNEA. BREATHING RETURNED TO NORMAL AFTER ADMINISTRATION OF HACEPINEPHERINE NEBULIZER. PAIN IS NOW ADEQUATELY CONTROLLED. ON O2 @ 2 L/MIN NC WITH SATS 95%. APPEARED TO BE ANXIOUS DURING AND AFTER THE EPISODE EARLIER. NO EVENTS ON TELEMETRY, SR 84-119. GETTING UP TO BSC WITH SBA.
--- NOTE | 2023-07-11 22:10 | NUR ---
SIGNIFICANT EVENT: *LATE ENTRY* PATIENT STARTED TO DEVELOP THE SAME SYMPTOMS DAY RN REPORTED AT SHIFT CHANGE OF STRIDOR, REQIURING EPI INHALATION. PATIENT WITH OBVIOUSLY AUDIBLE STRIDOR, SOB, PANIC, AND DECREASED ABILITY TO MOVE AIR, INCREASED HEART RATE UP TO THE 120-130'S DENYING CHEST PAIN. DR. ROWLAND NOTIFIED, AND ADDITIONAL MEDICATIONS : BENADRYHL, SOLUMEDROL, PEPCID. IV GIVEN. PATIENT TOLERATED WELL AND MANAGED TO SLEEP AFTER BREATHING RETURNED TO HER BASELINE WHILE SHE WAS IN THE HOSPITAL. CEFTRIAXONE HELD DR. ANN SWITCHED TO CIPRO WHICH SHE APPEARS TO HAVE TOLERATED. IMPROVING SYMPTOMS. CONTINUING TO MONITOR.
[2023-07-12] VITALS (9 sets, daily range): BP systolic 87–128; BP diastolic 54–82
--- NOTE | 2023-07-12 03:28 | NUR ---
AOC: PATIENT ENDORSING PAIN AND NAUSEA AT BEGINNING OF SHIFT MEDICATED BOTH PER MAR. PATIENT COOPERATIVE WITH CARE, USES THE CALL LIGHT APPROPRIATELY. DENIES CHEST PAIN PRESSURE, OR INCREASING SOB. DYSPNEIC WITH EXERTION. RUQ PAIN STILL PRESENT REQUIRING DILAUDED FOR PAIN, USING/ ASKING APPROPRIATELY. STILL ON 2-3L VIA NC TO MAINTAIN >92%. PATIENT IS ALERT AND ORIENTED X 4. NOT INFUSING ANYTHING AT THIS TIME. ABLE TO TOLERATE LIQUIDS. HELD LACTULOSE DUE TO VERY FREQUENT BM'S AND PATIENT PREFERENCE ENDORSED 6 M'SS SINCE ADMINISTRATION THIS AFTERNOON. ADITIONALLY NO HOA OF [place], POST 4 DOSES 2 DAYS.
[2023-07-12 03:55] LABS: Hematocrit 30.4 % (33.0-51.0); Hemoglobin 10.1 g/dL (11.5-16.0); Mean Corpuscular HGB 36.2 pg (26.0-34.0); Mean Corpuscular HGB Conc 33.2 g/dL (31.5-36.5); Mean Corpuscular Volume 109 fL (80-100); Mean Platelet Volume 10.5 fL (9.1-12.4); Platelet Count 438 K/mm3 (150-400); RDW Coefficient Variation 17.1 % (11.7-14.2); RDW Standard Deviation 67.5 fL (35.1-46.3); Red Blood Cell Count 2.79 M/mm3 (3.80-5.20); White Blood Cell Count 16.62 K/mm3 (4.00-11.30)
[2023-07-12 04:19] LABS: Alanine Aminotransfer (ALT/SGP 34 U/L (12-78); Albumin, Blood 1.9 g/dL (3.4-5.0); Albumin/Globulin Ratio 0.4 (0.8-1.8); Alk Phos 142 U/L (50-136); Anion Gap 3 mmol/L (6-16); Aspartate Aminotrans (AST/SGOT 121 U/L (12-37); Bilirubin, Total 1.5 mg/dL (0.1-1.0); Blood Urea Nitrogen <1 mg/dL (8-24); Bun/Creatinine Ratio Unable to Calculate (12.0-20.0); CO2, Blood 29 mmol/L (21-32); Chloride, Blood 113 mmol/L (98-108); Creatinine, Blood 0.42 mg/dL (0.40-1.00); Globulin, Blood 4.8 g/dL (2.2-4.0); Glomerular Filtration Rate 133 (60-); Glucose, Blood 127 mg/dL (70-99); Potassium, Blood 4.3 mmol/L (3.5-5.5); Sodium, Blood 145 mmol/L (136-145); Total Protein, Blood 6.7 g/dL (6.4-8.2)
--- NOTE | 2023-07-12 06:30 | NUR ---
EOS: PATIENT IS STILL ALERT AND ORIENTED X 4. INCREASING STRENGTH, COOPERATIVE WITH CARE. PLEASANT. 1P SBA TRANSFER TO BSC FOR URINATION AT THIS TIME. PAIN UNPROPORTIONATE EVEN WITH TREATMENT TO PAIN MEDICATIONS. RESPONDING WELL TO CIPRO, AT THIS TIME. DENIES CHEST PAIN PRESSURE OR SOB. SPO2 85-88% ON RA 94-98% ON 3L, AFEBRILE BLOOD PRESSURE STABLE. AT TIMES LOWER WHILE SLEEPING MAP >=65. SR 80-100. IMPROVING OVERALL CONDITION, SWELLING IN FACE LEGS AND HIVES DECREASED IV BENADRHYL AVAILABLE DIRECTED BY DAVID, NO INCIDENCES FROM SIGNIFICANT EVENT. EDUCATED IN GREAT LENGTH POTENTIAL PLAN OF CAER, PAIN CONTROL, PT/OT, AND OUTPATIENT RESOURCES.
--- NOTE | 2023-07-12 17:48 | NUR ---
SHIFT SUMMARY: PT HAS BEEN A&Ox4, COOPERATIVE W/CARE, ABLE TO MAKE NEEDS KNOWN. O2 SATS MAINTAINED >92% ON RA - 2 L/MIN. SOFT BP, MAP MAINTAINED >65. FL DIET REMAINS IN PLACE, PT C/O CONTINUED RUQ PAIN DESPITE PRN MEDICATIONS, STATES IT DOES GET WORSE W/FOOD. T/OUT MORNING, PT APPEARS FOCUSED ON GALLBLADDER REMOVAL. PROVIDER SPENDS TIME AT BEDSIDE EXPLAINING WHY GALLBLADDER WILL NOT BE SURGICALLY REMOVED. PT STATES SHE HAS BEEN DEALING WITH HER ABD PAIN FOR "8 MONTHS" AND IS TIRED OF WAITING FOR HER GALLBLADDER TO BE TAKEN OUT. EDUCATION AND REINFORCEMENT PROVIDED T/OUT SHIFT, PT MODERATELY RECEPTIVE. NO ACUTE EVENTS THIS SHIFT. PT TOLERATING AMBULATING TO/FROM RESTROOM W/SBA. WILL CONTINUE TO MONITOR AND TREAT ACCORDINGLY UNTIL REPORT GIVEN TO NOC SHIFT RN.
--- NOTE | 2023-07-12 22:59 | NUR ---
AOC: NAUSEATED AND PAINFUL AT THE START OF SHIFT, WITH INCREASING ITCHINESS, TREATED PER MAR. DENIES CHEST PAIN PRESSURE OR SOB. PATIENT IS ALERT AND ORIENTED X 4 ANXIOUS, TEARFUL AT TIMES, COOPERATIVE, ABLE TO MAKE NEEDS KNOWN, AMBULATION IMPROVED FROM EOS THIS AM. UNEVENTFUL DAY BY DAY RN. SHOULD POSSIBLE DISCHARGE TOMORROW.
[2023-07-13 04:10] VITALS: BP 92/70
[2023-07-13 04:15] LABS: Hematocrit 33.1 % (33.0-51.0); Hemoglobin 10.7 g/dL (11.5-16.0); Mean Corpuscular HGB 35.9 pg (26.0-34.0); Mean Corpuscular HGB Conc 32.3 g/dL (31.5-36.5); Mean Corpuscular Volume 111 fL (80-100); Mean Platelet Volume 10.6 fL (9.1-12.4); Platelet Count 461 K/mm3 (150-400); RDW Coefficient Variation 17.2 % (11.7-14.2); Red Blood Cell Count 2.98 M/mm3 (3.80-5.20)
[2023-07-13 04:35] LABS: Albumin, Blood 1.9 g/dL (3.4-5.0); Albumin/Globulin Ratio 0.4 (0.8-1.8); Bilirubin, Total 1.4 mg/dL (0.1-1.0); Bun/Creatinine Ratio 1.7 (12.0-20.0); Calcium, Blood 7.8 mg/dL (8.5-10.1); Creatinine, Blood 0.6 mg/dL (0.40-1.00); Globulin, Blood 4.7 g/dL (2.2-4.0); Potassium, Blood 3.7 mmol/L (3.5-5.5); Total Protein, Blood 6.6 g/dL (6.4-8.2)
--- NOTE | 2023-07-13 06:15 | NUR ---
EOS: PATIENT IMPROVING IN REGARDS TO MOBILITY STRENGTH AND BREATHING. HOWERVER, WBC STILL INCREASING, PATIENT STILL HAVING INCREASED RUQ, PAIN CHANGED THROUGH THE NIGHT WHICH IS MORE LOCATED AT THE LEVEL OF THE LIVER. PATIENT ANXIOUS AT TIMES, DIFFICULTY TOLERATING IV ANTIBIOTICS, STILL ITCH AT TIMES MEDICATED ANXIETY AND ITCHINESS PER MAR. NO CONCERNS FROM THIS RN AT THIS TIME
[2023-07-13 07:40] VITALS: BP 97/69
[2023-07-13 15:14] VITALS: BP 97/63
--- NOTE | 2023-07-13 16:47 | NUR ---
PT ARRIVED TO RM 226 FROM PCU. TRANSFERRED INDEPENDENTLY FROM TO BED. ORIENTED TO /CALL LIGHT. PROVIDED BEVERAGES AND EXTRA PILLOWS FOR COMFORT. PT DENIES ANY OTHER NEEDS AT THIS TIME. CALL LIGHT IN REACH.
[2023-07-13 19:08] VITALS: BP 96/70
[2023-07-13 21:22] VITALS: BP 94/63
[2023-07-14 02:37] VITALS: BP 97/70
[2023-07-14 06:13] LABS: BASOPHILS ABSOLUTE AUTO 0.09 K/mm3 (0.00-0.23); BASOPHILS PERCENT AUTO 1 % (0-2); EOSINOPHILS ABSOLUTE AUTO 0.25 K/mm3 (0.00-0.68); EOSINOPHILS PERCENT AUTO 2 % (0-6); Hemoglobin 10.9 g/dL (11.5-16.0); IMMATURE GRAN PERCENT AUTO 1 % (0-1); LYMPHOCYTES ABSOLUTE AUTO 2.74 K/mm3 (0.84-5.20); LYMPHOCYTES PERCENT AUTO 19 % (21-46); MONOCYTES ABSOLUTE AUTO 0.78 K/mm3 (0.16-1.47); MONOCYTES PERCENT AUTO 5 % (4-13); Mean Corpuscular HGB 35.9 pg (26.0-34.0); Mean Corpuscular Volume 109 fL (80-100); Mean Platelet Volume 11.4 fL (9.1-12.4); NEUTROPHILS ABSOLUTE AUTO 10.54 K/mm3 (1.96-9.15); NEUTROPHILS PERCENT AUTO 73 % (41-73); Platelet Count 472 K/mm3 (150-400); RDW Coefficient Variation 16.4 % (11.7-14.2); RDW Standard Deviation 64.7 fL (35.1-46.3); Red Blood Cell Count 3.04 M/mm3 (3.80-5.20)
[2023-07-14 06:32] LABS: Albumin, Blood 1.8 g/dL (3.4-5.0); Albumin/Globulin Ratio 0.4 (0.8-1.8); Bilirubin, Total 1.5 mg/dL (0.1-1.0); Bun/Creatinine Ratio 1.9 (12.0-20.0); Calcium, Blood 7.7 mg/dL (8.5-10.1); Creatinine, Blood 0.52 mg/dL (0.40-1.00); Globulin, Blood 4.2 g/dL (2.2-4.0); Potassium, Blood 3.7 mmol/L (3.5-5.5)
[2023-07-14 07:39] VITALS: BP 87/56
--- NOTE | 2023-07-14 07:50 | NUR ---
SHIFT SUMMARY NOC. PT A/O X4. PT PAINFUL AND MEDICATED WITH RELIEF X2. PT HAD MILD ITCHING AND RECEIVED RELIEF WITH IV BENADRYL. PT VOIDING AND TOLERATING PO. PT RESTED WITH EYES CLOSED AND CALL LIGHT IN REACH.
[2023-07-14] MEDS ORDERED: HYDHCL25 PO (11:18)
[2023-07-14] MEDS ORDERED: Percocet 5-3251 EACH PO (11:18)
--- NOTE | 2023-07-14 13:23 | NUR ---
DC'D HOME, DC INSTRUCTIONS GIVEN, VERBALIZED UNDERSTANDING.
== END 2023-07-14 13:30 | disposition home or self-care (01) | DRG 432 ==
LOC: ER 16:28 → ERHOLD 16:29 → PCU 16:29 → ERHOLD 16:29 → PCU 07-09 06:10 → SURS 07-13 16:35
PROVIDERS: Hospitalist; Internal Medicine; Physician Assistant; ADMIT Internal Medicine
PROC: 0W9G3ZZ Drainage of Peritoneal Cavity, Percutaneous Approach (ICD-10-PCS; principal; 2023-07-09)
DX: K70.31 Alcoholic cirrhosis of liver with ascites (principal); J96.01 Acute respiratory failure with hypoxia; E72.20 Disorder of urea cycle metabolism, unspecified; J98.11 Atelectasis; J90 Pleural effusion, not elsewhere classified; K86.1 Other chronic pancreatitis; K70.11 Alcoholic hepatitis with ascites; F41.0 Panic disorder [episodic paroxysmal anxiety]; D72.829 Elevated white blood cell count, unspecified; T38.0X5A Adverse effect of glucocorticoids and synthetic analogues, initial encounter; T50.905A Adverse effect of unspecified drugs, medicaments and biological substances, initial encounter; F43.10 Post-traumatic stress disorder, unspecified; K83.8 Other specified diseases of biliary tract; F10.20 Alcohol dependence, uncomplicated; Z88.0 Allergy status to penicillin; Z71.41 Alcohol abuse counseling and surveillance of alcoholic
CPT/HCPCS: 36415; 49083; 71045; 71275; 74177; 76705; 78226; 80053; 81001; 81025; 82042; 82140; 82150; 83605; 83615; 83690; 84157; 84484; 85025; 85027; 85610; 87070; 87075; 87086; 87205; 89051; 93005; 93010; 94640; 94664; 94760; 94762; 96361; 96365; 96366; 96367; 96375; 96376; 99285-25; A9270; A9537; G0378; J0171; J0696; J0744; J1170; J1200; J1790; J2405; J2930; J3010; J3411; J7030; J7050; Q9967

== ENCOUNTER 2023-08-06 07:53 | Emergency (ER) | payer OTHER ==
[~2023-08-06] VITALS: Ht 165.1 cm; Wt 59.0 kg
[~2023-08-06 07:53] MED LIST changes: +CEFD300 PO; +HYDHCL25 PO; +TRAM50 PO
[2023-08-06] MEDS ORDERED: DOXY100 PO (09:20)
[2023-08-06 09:39] LABS: BASOPHILS ABSOLUTE AUTO 0.06 K/mm3 (0.00-0.23); BASOPHILS PERCENT AUTO 1 % (0-2); EOSINOPHILS PERCENT AUTO 1 % (0-6); Hematocrit 38.8 % (33.0-51.0); IMMATURE GRAN ABSOLUTE AUTO 0.03 K/mm3 (0.00-0.10); IMMATURE GRAN PERCENT AUTO 0 % (0-1); LYMPHOCYTES ABSOLUTE AUTO 1.58 K/mm3 (0.84-5.20); LYMPHOCYTES PERCENT AUTO 17 % (21-46); MONOCYTES ABSOLUTE AUTO 0.71 K/mm3 (0.16-1.47); MONOCYTES PERCENT AUTO 7 % (4-13); Mean Corpuscular HGB 34.5 pg (26.0-34.0); Mean Corpuscular HGB Conc 33.5 g/dL (31.5-36.5); Mean Corpuscular Volume 103 fL (80-100); NEUTROPHILS PERCENT AUTO 74 % (41-73); Platelet Count 433 K/mm3 (150-400); RDW Coefficient Variation 13.2 % (11.7-14.2); Red Blood Cell Count 3.77 M/mm3 (3.80-5.20); White Blood Cell Count 9.58 K/mm3 (4.00-11.30)
[2023-08-06 09:58] LABS: Albumin, Blood 2.6 g/dL (3.4-5.0); Albumin/Globulin Ratio 0.4 (0.8-1.8); Bilirubin, Total 2.8 mg/dL (0.1-1.0); Bun/Creatinine Ratio 2.2 (12.0-20.0); Calcium, Blood 8.7 mg/dL (8.5-10.1); Creatinine, Blood 0.46 mg/dL (0.40-1.00); Globulin, Blood 5.8 g/dL (2.2-4.0); Potassium, Blood 3.2 mmol/L (3.5-5.5); Total Protein, Blood 8.4 g/dL (6.4-8.2)
[2023-08-06 11:09] VITALS: BP 96/67
== END 2023-08-06 11:08 | disposition home or self-care (01) ==
LOC: ER 07:53
PROVIDERS: Emergency Medicine
DX: R10.11 Right upper quadrant pain (principal); R11.2 Nausea with vomiting, unspecified; R74.01 Elevation of levels of liver transaminase levels; Z87.19 Personal history of other diseases of the digestive system; F43.10 Post-traumatic stress disorder, unspecified; Z87.891 Personal history of nicotine dependence; Z88.1 Allergy status to other antibiotic agents
CPT/HCPCS: 71045; 80053; 83690; 84703; 85025; 96361; 96374; 96375; 99284-25; C9113; J1170; J2405; J7030

== ENCOUNTER 2023-09-17 08:14 | Emergency (ER) | payer OTHER ==
[~2023-09-17] VITALS: Ht 165.1 cm; Wt 61.2 kg
[~2023-09-17 08:14] MED LIST changes: +DOXY100 PO
[2023-09-17 09:17] LABS: BASOPHILS ABSOLUTE AUTO 0.08 K/mm3 (0.00-0.23); BASOPHILS PERCENT AUTO 1 % (0-2); EOSINOPHILS ABSOLUTE AUTO 0.09 K/mm3 (0.00-0.68); EOSINOPHILS PERCENT AUTO 1 % (0-6); Hematocrit 34.7 % (33.0-51.0); Hemoglobin 12.2 g/dL (11.5-16.0); IMMATURE GRAN ABSOLUTE AUTO 0.03 K/mm3 (0.00-0.10); IMMATURE GRAN PERCENT AUTO 0 % (0-1); LYMPHOCYTES PERCENT AUTO 16 % (21-46); MONOCYTES ABSOLUTE AUTO 0.97 K/mm3 (0.16-1.47); MONOCYTES PERCENT AUTO 10 % (4-13); Mean Corpuscular HGB 32.3 pg (26.0-34.0); Mean Corpuscular HGB Conc 35.2 g/dL (31.5-36.5); Mean Corpuscular Volume 92 fL (80-100); Mean Platelet Volume 9.9 fL (9.1-12.4); NEUTROPHILS ABSOLUTE AUTO 7.38 K/mm3 (1.96-9.15); NEUTROPHILS PERCENT AUTO 73 % (41-73); Platelet Count 221 K/mm3 (150-400); RDW Coefficient Variation 14.5 % (11.7-14.2); Red Blood Cell Count 3.78 M/mm3 (3.80-5.20); White Blood Cell Count 10.15 K/mm3 (4.00-11.30)
[2023-09-17 09:27] LABS: Albumin, Blood 2.5 g/dL (3.4-5.0); Albumin/Globulin Ratio 0.4 (0.8-1.8); Bilirubin, Total 2.5 mg/dL (0.1-1.0); Bun/Creatinine Ratio 2.3 (12.0-20.0); Calcium, Blood 8.5 mg/dL (8.5-10.1); Creatinine, Blood 0.43 mg/dL (0.40-1.00); Potassium, Blood 2.8 mmol/L (3.5-5.5); Total Protein, Blood 8.5 g/dL (6.4-8.2)
[2023-09-17] MEDS ORDERED: Ondansetron HCl 2 MG / ML 2ML Vial IV ONE ×2 (09:35→11:35)
[2023-09-17] MEDS ORDERED: NS 1,000 ML IV SCH ×3 (09:35→14:40)
[2023-09-17] MEDS ORDERED: Ketorolac Tromethamine 15mg Vial IV ONE (09:35)
[2023-09-17] MEDS ORDERED: Potassium Chloride 40 MEQ in NS 250 ML IV ONE (10:30)
[2023-09-17] MEDS ORDERED: HYDROmorphone HCl/Pf 1MG SYR IV ONE ×2 (11:30→14:25)
[2023-09-17] MEDS ORDERED: NS 1,000 ML IV ONE (14:24)
[2023-09-17] MEDS ORDERED: LORazepam 2 MG/ML 1ML Injection IV ONE (14:25)
[2023-09-17] MEDS ORDERED: Metoclopramide HCl 5MG / ML 2ML Vial IV ONE (14:25)
[2023-09-17 16:02] LABS: International Normalized Ratio 1.85; Prothrombin Time Results 18.8 Sec (9.7-11.5)
[2023-09-17 16:45] VITALS: BP 100/66
== END 2023-09-17 17:14 | disposition home or self-care (01) ==
LOC: ER 08:14
PROVIDERS: Emergency Medicine; Physician Assistant
DX: R07.89 Other chest pain (principal); E87.6 Hypokalemia; R10.32 Left lower quadrant pain; Z88.1 Allergy status to other antibiotic agents; Z88.0 Allergy status to penicillin; F43.10 Post-traumatic stress disorder, unspecified; Z87.891 Personal history of nicotine dependence
CPT/HCPCS: 71046; 74177; 76705; 80053; 83690; 83735; 84484; 84703; 85025; 85610; 85730; 93005; 93010; 96361; 96365-59; 96366; 96375; 96376; 99284-25; J1170; J1885; J2060; J2405; J2765; J3480; J7030; J7050; Q9967

== ENCOUNTER 2023-09-20 09:11 | Emergency (ER) | payer OTHER ==
[~2023-09-20] VITALS: Ht 165.1 cm; Wt 63.5 kg
[2023-09-20] MEDS ORDERED: Ondansetron HCl 2 MG / ML 2ML Vial IV ONE (10:40)
[2023-09-20] MEDS ORDERED: Morphine Sulfate 4 MG/1 ML Injection IV ONE ×2 (10:40→14:10)
[2023-09-20] MEDS ORDERED: B-1100 M2 PO (10:50)
[2023-09-20 11:28] LABS: BASOPHILS ABSOLUTE AUTO 0.05 K/mm3 (0.00-0.23); BASOPHILS PERCENT AUTO 1 % (0-2); EOSINOPHILS ABSOLUTE AUTO 0.09 K/mm3 (0.00-0.68); EOSINOPHILS PERCENT AUTO 1 % (0-6); Hematocrit 32.6 % (33.0-51.0); Hemoglobin 11.3 g/dL (11.5-16.0); IMMATURE GRAN ABSOLUTE AUTO 0.03 K/mm3 (0.00-0.10); IMMATURE GRAN PERCENT AUTO 0 % (0-1); LYMPHOCYTES ABSOLUTE AUTO 1.24 K/mm3 (0.84-5.20); LYMPHOCYTES PERCENT AUTO 13 % (21-46); MONOCYTES ABSOLUTE AUTO 0.92 K/mm3 (0.16-1.47); MONOCYTES PERCENT AUTO 10 % (4-13); Mean Corpuscular HGB 32.5 pg (26.0-34.0); Mean Corpuscular HGB Conc 34.7 g/dL (31.5-36.5); Mean Corpuscular Volume 94 fL (80-100); Mean Platelet Volume 9.3 fL (9.1-12.4); NEUTROPHILS ABSOLUTE AUTO 7.37 K/mm3 (1.96-9.15); NEUTROPHILS PERCENT AUTO 76 % (41-73); Platelet Count 219 K/mm3 (150-400); RDW Coefficient Variation 15.5 % (11.7-14.2); RDW Standard Deviation 51.9 fL (35.1-46.3); Red Blood Cell Count 3.48 M/mm3 (3.80-5.20)
[2023-09-20 11:48] LABS: Magnesium, Blood 1.7 mg/dL (1.6-2.4)
[2023-09-20 12:14] LABS: Alanine Aminotransfer (ALT/SGP 56 U/L (12-78); Albumin, Blood 2.3 g/dL (3.4-5.0); Albumin/Globulin Ratio 0.4 (0.8-1.8); Alk Phos 190 U/L (50-136); Anion Gap 2 mmol/L (6-16); Aspartate Aminotrans (AST/SGOT 211 U/L (12-37); Bilirubin, Total 3.7 mg/dL (0.1-1.0); Bun/Creatinine Ratio Unable to Calculate (12.0-20.0); CO2, Blood 30 mmol/L (21-32); Calcium, Blood 8.3 mg/dL (8.5-10.1); Chloride, Blood 106 mmol/L (98-108); Creatinine, Blood 0.48 mg/dL (0.40-1.00); Globulin, Blood 5.6 g/dL (2.2-4.0); Glomerular Filtration Rate 129 (60-); Glucose, Blood 115 mg/dL (70-99); Potassium, Blood 2.9 mmol/L (3.5-5.5); Sodium, Blood 138 mmol/L (136-145); Total Protein, Blood 7.9 g/dL (6.4-8.2)
[2023-09-20 12:15] LABS: Blood Urea Nitrogen <1 mg/dL (8-24)
[2023-09-20] MEDS ORDERED: Dexamethasone Sod Phos 10 MG/ML 1ML VIAL IV ONE (14:10)
[2023-09-20 14:15] LABS: Source, Urine Voided
[2023-09-20 14:25] LABS: Bilirubin, Urine Neg (Neg); Blood, Urine Neg (Neg); Color, Urine Amber (P-Yellow); Glucose Qualitative, Urine Neg (Neg); Ketones, Urine Neg (Neg); Leukocyte Esterase, Urine 1+ (Neg); Nitrite, Urine Neg (Neg); Protein, Urine Neg (Neg); Urobilinogen, Urine 2+ (Normal)
[2023-09-20 14:31] LABS: Appearance, Urine Clear (Clear)
[2023-09-20 14:33] LABS: Bacteria Few /hpf; Red Blood Cells, Urine Not Seen /hpf (0-2); Squamous Epithelial Cells Few /hpf (Few); White Blood Cells, Urine 0-2 /hpf (0-5); Yeast/Fungi Urine Rare /hpf
[2023-09-20] MEDS ORDERED: ONDA4ODT MM (14:58)
[2023-09-20] MEDS ORDERED: Prednisone20 MG PO (14:58)
[2023-09-20] MEDS ORDERED: DICY20 PO (14:58)
[2023-09-20 15:00] VITALS: BP 103/64
== END 2023-09-20 15:29 | disposition home or self-care (01) ==
LOC: ER 09:11
PROVIDERS: Emergency Medicine; Physician Assistant
DX: K52.9 Noninfective gastroenteritis and colitis, unspecified (principal); Z88.0 Allergy status to penicillin; Z88.8 Allergy status to other drugs, medicaments and biological substances; F43.10 Post-traumatic stress disorder, unspecified; F17.290 Nicotine dependence, other tobacco product, uncomplicated
CPT/HCPCS: 80053; 81001; 83690; 83735; 84703; 85025; 96374; 96375; 96376; 99284-25; J1100; J2270; J2405

== ENCOUNTER 2023-12-01 08:42 | Observation (INO) | payer OTHER ==
[~2023-12-01] VITALS: Ht 165.1 cm; Wt 61.8 kg
[2023-12-02 11:47] VITALS: BP 111/69
== END 2023-12-02 15:15 | disposition home or self-care (01) ==
LOC: ER 08:42 → PCU 08:43
PROVIDERS: ADMIT Internal Medicine
DX: R07.89 Other chest pain (principal); K70.31 Alcoholic cirrhosis of liver with ascites; F41.9 Anxiety disorder, unspecified; J98.11 Atelectasis; E87.6 Hypokalemia; R00.0 Tachycardia, unspecified; F17.290 Nicotine dependence, other tobacco product, uncomplicated; Z88.0 Allergy status to penicillin; Z88.1 Allergy status to other antibiotic agents; Z79.899 Other long term (current) drug therapy